=== PATIENT | female | born 1980 | race Caucasian/White ===

== ENCOUNTER 2024-01-26 02:23 | Emergency (ER) | payer BC, OTHER ==
[~2024-01-26] VITALS: Ht 170.2 cm; Wt 147.8 kg
[~2024-01-26 02:23] MED LIST: DASETTA1 EACH PO; DILAUDID4 MG PO; FISH OIL 1,0001 EAC2 NG; FISH OIL 1,0001 EAC3 PO; IBUPROFEN600 MG PO; KURVELO1 EACH PO; MOTRIN IB200 MG PO; MULTIVITAMINS1 EAC7 PO; NECON1 EAC1 PO; NORCO 5-325 TA1 EACH PO; OMEGA PO; PERCOCET 5-3251 EACH PO; ROBAXIN-750750 MG PO; ZOFRAN ODT8 MG PO
[2024-01-26] MEDS ORDERED: VITAMIN D31250 MC1 PO (02:43)
[2024-01-26] MEDS ORDERED: ATENOLOL50 MG PO (02:43)
[2024-01-26] MEDS ORDERED: ACETAMINOPHEN500 MG PO (02:44)
[2024-01-26] MEDS ORDERED: dilTIAZem HCL 25 MG/5 ML VIAL IV ONE (02:45)
[2024-01-26] MEDS ORDERED: dilTIAZem HCL 30 MG TAB PO ONE (03:00)
[2024-01-26 03:25] LABS: BASOPHILS 0.6 % (0-2); EOSINOPHILS 1.4 % (0-6); HEMATOCRIT 41.6 % (35.0-50.0); HEMOGLOBIN 13.9 g/dL (12.0-18.0); LYMPHOCYTES 20.5 % (24-44); MCHC 33.5 g/dl (30-36); MCV 86.7 fl (81-99); MONOCYTES 6.6 % (0-12); NEUTROPHILS 70.9 % (39-80); PLATELET COUNT 239 K/uL (140-440); RDW 13.8 (10.5-15.0)
[2024-01-26 03:31] LABS: INR 0.89 (0.80-1.30); PROTIME 11.7 Sec (11.2-14.2)
[2024-01-26 03:33] LABS: PARTIAL THROMBOPLASTIN TIME 28.4 Sec (22.9-41.3)
[2024-01-26 03:47] LABS: ALBUMIN 3.5 g/dL (3.4-5.0); ALBUMIN/GLOBULIN RATIO 0.88 (1.1-2.4); ANION GAP 17.8 (7-21); BILIRUBIN, TOTAL 0.3 ng/dL (0.2-1.0); BUN/CREATININE RATIO 16.16 (6.0-28.6); CALCIUM 8.7 mg/dL (8.5-10.1); CREATININE, SERUM 0.99 mg/dL (0.55-1.02); POTASSIUM 3.8 mmol/L (3.5-5.1); PROTEIN, TOTAL 7.5 g/dL (6.4-8.2); TSH, 3RD GENERATION 3.232 uIU/mL (0.358-3.740)
[2024-01-26 04:17] VITALS: BP 140/93
--- NOTE | 2024-01-27 22:13 | EKG ---
[facility] [address] [facility] [place], [place] [address] Signed Atrial fibrillation with rapid ventricular response Nonspecific ST abnormality Abnormal ECG No previous ECGs available Confirmed by VAISHNAVI TYLER MD ([id number]) on 01/27/2024 10:12:55 PM Electronically Signed By: VAISHNAVI TYLER 01/27/24 221 PATIENT NAME: CINDY RAMÍREZ Electrocardiogram DATE OF : 84 PHYSICIAN: VAISHNAVI TYLER REPORT #: [id number] REPORT IS CONFIDENTIAL AND NOT TO BE RELEASED WITHOUT AUTHORIZATION
--- NOTE | 2024-01-27 22:13 | EKG ---
[facility] [address] [place] [address] Signed Sinus bradycardia Otherwise normal ECG When compared with ECG of 26-JAN-2024 02:25, (Unconfirmed) Sinus rhythm has replaced Atrial fibrillation Vent. rate has decreased BY 75 BPM Confirmed by VAISHNAVI TYLER MD ([id number]) on 01/27/2024 10:13:02 PM Electronically Signed By: VAISHNAVI TYLER 01/27/24 2213 PATIENT NAME: NANCY RAMÍREZMUNIRA CURTIS Electrocardiogram DATE OF : 84 PHYSICIAN: VAISHNAVI TYLER REPORT #: [id number] REPORT IS CONFIDENTIAL AND NOT TO BE RELEASED WITHOUT AUTHORIZATION
== END 2024-01-26 04:16 | disposition home or self-care (01) ==
LOC: ED 02:23
PROVIDERS: Internal Medicine
DX: I48.0 Paroxysmal atrial fibrillation (principal); E66.01 Morbid (severe) obesity due to excess calories; Z68.43 Body mass index [BMI] 50.0-59.9, adult; Z88.6 Allergy status to analgesic agent; Z91.040 Latex allergy status; Z88.5 Allergy status to narcotic agent; Z91.013 Allergy to seafood; Z91.018 Allergy to other foods; Z79.899 Other long term (current) drug therapy
CPT/HCPCS: 36415; 71045; 80053; 80307; 83735; 84443; 84484; 85025; 85379; 85610; 85730; 93005; 93010; 99285-25